=== PATIENT | female | born 1980 | race Caucasian/White ===

== ENCOUNTER → 2018-02-09 | Outpatient (CLI) | payer OTHER ==
[~2018-02-09] MED LIST: IOPAMIDOL (ISOVUE 370) 100 ML BTL IV ONE; IOPAMIDOL (ISOVUE-300) 150 ML BTL ONE
== END ==
LOC: FIMAGING 12:57
PROVIDERS: ATTEND Obstetrics & Gynecology
PROC: 0UJD7ZZ Inspection of Uterus and Cervix, Via Natural or Artificial Opening (ICD-10-PCS; principal; 2018-02-09)
DX: Z01.419 Encounter for gynecological examination (general) (routine) without abnormal findings (principal)
CPT/HCPCS: Q9967

== ENCOUNTER 2019-05-28 17:08 | Emergency (ER) | payer OTHER | END 2019-05-28 19:05 | disposition home or self-care (01) | DX: [UNRECOGNIZED DIAGNOSIS CODE] ==